=== PATIENT | female | born 1975 | race Caucasian/White ===

== ENCOUNTER 2017-06-02 08:32 | Observation (INO) | payer MEDICAID, OTHER ==
[~2017-06-02] VITALS: Ht 152.4 cm; Wt 138.0 kg
[2017-06-02 08:48] VITALS: BP 121/88; PULSE 88; RESP 18; TEMP 98.7; O2SAT 99
[2017-06-02] MEDS ORDERED: ORPHENADRINE INJ 60 MG/2 ML AMP IM ONE (10:30)
[2017-06-02] MEDS ORDERED: KETOROLAC TROMETHAMINE 60 MG/2 ML (IM) VIAL IM ONE (10:30)
--- NOTE | 2017-06-02 11:52 | RADRPT ---
EXAM DATE/TIME: 06/02/2017 10:54 [facility] COMPARISON: No previous studies available for comparison. INDICATIONS : Fell landed on back RADIATION DOSE: 37.49 CTDIvol (mGy) ; Combined studies - Thoracic Spine/Lumbar Spine MEDICAL HISTORY : None SURGICAL HISTORY : None. ENCOUNTER: Initial ACUITY: 1 day PAIN SCALE: 10/10 LOCATION: T spine TECHNIQUE: Volumetric scanning of the thoracic spine was performed. Multiplanar reconstructions in the sagittal , coronal and oblique axial planes were performed. Using automated exposure control and adjustment o f the mA and/or kV according to patient size, radiation dose was kept as low as reasonably achievable to obtain optimal diagnostic quality images. DICOM format image data is available electronically f or review and comparison. FINDINGS: Sagittal and coronal reconstructions show a compression fracture through T11 which appears acute or s ubacute. 4 mm retropulsed fragment off the superior endplate but there is no spinal stenosis. Spinal canal is adequate all remaining levels. Mild multilevel degenerative disc disease with some marginal spurring most prominent in the mid and lower dorsal levels. T1-T2: Normal. T2-T3: The thecal sac has a normal diameter. No evidence of disc bulge or protrusion. T3-T4: The thecal sac has a normal diameter. No evidence of disc bulge or protrusion. T4-T5: The thecal sac has a normal diameter. No evidence of disc bulge or protrusion. T5-T6: The thecal sac has a normal diameter. No evidence of disc bulge or protrusion. T6-T7: The thecal sac has a normal diameter. No evidence of disc bulge or protrusion. T7-T8: The thecal sac has a normal diameter. No evidence of disc bulge or protrusion. T8-T9: The thecal sac has a normal diameter. No evidence of disc bulge or protrusion. T9-T10: The thecal sac has a normal diameter. No evidence of disc bulge or protrusion. T10-T11: Fracture of the T11 vertebral body with small retropulsed fragment. Spinal canal remains adequate. T11-T12: The thecal sac has a normal diameter. No evidence of disc bulge or protrusion. T12-L1: The thecal sac has a normal diameter. No evidence of disc bulge or protrusion. CONCLUSION: 1. Acute or subacute compression fracture through T11 with a small associated 4 mm retropulsed fragme nt off the superior endplate. No obvious spinal stenosis. 2. Multilevel mild degenerative disc disease in the mid and lower dorsal levels with small marginal s purs. Spinal canal again appears adequate throughout. Bolivar Collier MD on June 02, 2017 at 11:45 Board Certified Radiologist. This report was verified electronically.
--- NOTE | 2017-06-02 11:57 | RADRPT ---
EXAM DATE/TIME: 06/02/2017 10:54 [facility] COMPARISON: No previous studies available for comparison. INDICATIONS : Fell flat on back. RADIATION DOSE: 37.49 CTDIvol (mGy) ; Combined studies - Thoracic Spine/Lumbar Spine MEDICAL HISTORY : None SURGICAL HISTORY : None. ENCOUNTER: Initial ACUITY: 1 day PAIN SCALE: 10/10 LOCATION: L spine TECHNIQUE: Volumetric scanning of the lumbar spine was performed. Multiplanar reconstructions in the sagittal, coronal and oblique axial planes were performed. Using automated exposure control and adjustment of the mA and/or kV according to patient size, radiation dose was kept as low as reasonably achievable t o obtain optimal diagnostic quality images. DICOM format image data is available electronically for review and comparison. FINDINGS: Sagittal and coronal reconstruction show an intact lumbar spine but there is a compression fracture t hrough T11 which is acute or subacute. Associated 4 mm retropulsed fragment off the superior endplate of T11 which encroaches on the spinal canal but does not appear to result in significant spinal sten osis. Vertebral body heights are maintained throughout the lumbar spine with a partially calcified br oad-based disc at the lumbosacral junction. T12-L1: The thecal sac has a normal diameter. No evidence of disc bulge or protrusion. The neural foramina are patent bilaterally. L1-L2: The thecal sac has a normal diameter. No evidence of disc bulge or protrusion. The neural foramina are patent bilaterally. L2-L3: The thecal sac has a normal diameter. No evidence of disc bulge or protrusion. The neural foramina are patent bilaterally. L3-L4: The thecal sac has a normal diameter. No evidence of disc bulge or protrusion. The neural foramina are patent bilaterally. L4-L5: Marked facet hypertrophy rightward. Spinal canal and neural foramina appear to be adequate. L5-S1: Bilateral facet hypertrophy, right much worse than left. Spinal canal and neural foramina appear to b e adequate despite the partially calcified disc at this level. CONCLUSION: 1. Acute or subacute compression fracture through T11 with a 4 mm retropulsed fragment. 2. Lumbar vertebrae are intact throughout with no acute injury. 3. Partially calcified disc at L5-S1. 4. Marked facet hypertrophy rightward L4-5 and L5-S1. I believe the neural foramina remain adequate a t both levels, however. Bolivar Collier MD on June 02, 2017 at 11:49 Board Certified Radiologist. This report was verified electronically.
--- NOTE | 2017-06-02 13:13 | PD ---
HPI . Back pain Chief Complaint: Back/ Neck Pain or Injury Time Seen by Provider: 10:09 Travel History International Travel<30 days: No Contact w/Intl Traveler<30days: No Traveled to known affect area: No History of Present Illness HPI 42-year-old female presents emergency department for evaluation of mid and lower level back pain after slipping on water and falling this morning. Patient denies any major medical history outside of hypothyroidism. Patient is morbidly obese. Patient denies any paresthesias. Bilateral lower extremities neurovascularly intact. PFSH Past Medical History ?: Not Social History Alcohol Use: No Tobacco Use: No Substance Use: No Allergies-Medications (Allergen,Severity, Reaction): Coded Allergies: No Known Allergies (Unverified , 06/02/17) Reported Meds & Prescriptions Reported Meds & Active Scripts Active No Active Prescriptions or Reported Medications Review of Systems Except as stated in HPI: all other systems reviewed are Neg Physical Exam Narrative GENERAL: Well-nourished, well-developed morbidly obese 42-year-old female patient in no acute distress. SKIN: Focused skin assessment warm/dry. HEAD: Normocephalic. Atraumatic.. NECK: Supple, trachea midline. No JVD or lymphadenopathy. CARDIOVASCULAR: Regular rate and rhythm without murmurs, gallops, or rubs. Pedal pulses +2 bilaterally. RESPIRATORY: Breath sounds equal bilaterally. No accessory muscle use. GASTROINTESTINAL: Abdomen soft, non-tender, nondistended. MUSCULOSKELETAL: No obvious deformity, cyanosis, or edema. Patient able to move all extremities without difficulty. Limited range of motion secondary to size of patient. BACK: Midline thoracic and lumbar vital tenderness. No obvious deformity, ecchymosis or erythema. No CVA tenderness. Data Data Last Documented VS Vital Signs Date Time Temp Pulse Resp B/P (MAP) Pulse Ox O2 Delivery O2 Flow Rate FiO2 06/02/17 08:48 98.7 88 18 121/88 (99) [address] Thor Spine W/O Contrast (06/02/17 10:23) Ct Lumb Spine W/O Contrast (06/02/17 10:23) Ketorolac Inj (Toradol Inj) (06/02/17 10:30) Orphenadrine Inj (Norflex Inj) (06/02/17 10:30) MDM Medical Decision Making Medical Screen Exam Complete: Yes Emergency Medical Condition: Yes Differential Diagnosis Differential diagnoses include but not limited to contusion, compression fracture, back sprain, cauda equina syndrome Narrative Course 42-year-old female patient presents emergency department for evaluation of back pain after slipping and falling of water this morning. Patient is morbidly obese and has a difficult time moving secondary to her size. Patient denies any paresthesias. Patient has midline spinal tenderness over the thoracic and lumbar region. Patient denies any major medical history outside of hypothyroidism. CT of lumbar and thoracic spine ordered and pending. CT shows compression fracture through T 11 with a small retropulsed fragment. Dr. Otto called regarding plan of care and he suggested admitting the patient to the hospital and consultation him for possible kyphoplasty. Patient will be admitted to the hospital. MAURA paged for admission. Dr. Rahman returned page and accepted admission. Last Impressions Thoracic Spine CT 06/02/17 1023 Signed Impressions: Service Date/Time: Friday, June 02, 2017 10:54 - CONCLUSION: 1. Acute or subacute compression fracture through T11 with a small associated 4 mm retropulsed fragment off the superior endplate. No obvious spinal stenosis. 2. Multilevel mild degenerative disc disease in the mid and lower dorsal levels with small marginal spurs. Spinal canal again appears adequate throughout. Bolivar Collier MD Lumbar Spine CT 06/02/17 1023 Signed Impressions: Service Date/Time: Friday, June 02, 2017 10:54 - CONCLUSION: 1. Acute or subacute compression fracture through T11 with a 4 mm retropulsed fragment. 2. Lumbar vertebrae are intact throughout with no acute injury. 3. Partially calcified disc at L5-S1. 4. Marked facet hypertrophy rightward L4-5 and L5-S1. I believe the neural foramina remain adequate at both levels, however. Bolivar Collier MD Diagnosis Primary Impression: Compression fracture of body of thoracic vertebra Additional Impression: Fall Qualified Codes: W19.XXXA - Unspecified fall, initial encounter Scripts No Active Prescriptions or Reported Meds Adriana Kim Jun 02, 2017 13:13
[2017-06-02] MEDS ORDERED: NALOXONE HCL 0.4 MG/ML AMP IV PUSH PRN (13:30)
[2017-06-02] MEDS ORDERED: SODIUM CHLORIDE 0.9% FLUSH 10 ML FLUSH IV FLUSH PRN (13:30)
[2017-06-02] MEDS ORDERED: ONDANSETRON HCL 4 MG/2 ML VIAL IVP PRN (13:30)
[2017-06-02] MEDS ORDERED: SENNOSIDES 8.6 MG TAB PO PRN (13:30)
[2017-06-02] MEDS ORDERED: oxyCODONE/ACETAMINOPHEN 5 MG/325 MG TAB PO PRN (13:30)
[2017-06-02] MEDS ORDERED: LACTULOSE SYRUP 20 GM/30 ML CUP PO PRN (13:30)
[2017-06-02] MEDS ORDERED: BISACODYL 10 MG SUPP RECTAL PRN (13:30)
[2017-06-02] MEDS ORDERED: MAGNESIUM HYDROXIDE SUSP 30 ML CUP PO PRN (13:30)
[2017-06-02] MEDS: oxyCODONE/ACETAMINOPHEN 5 MG/325 MG TAB PO PRN (15:38)
--- NOTE | 2017-06-02 15:38 | HHI.HP ---
[facility] Service [facility] Primary Care Physician No Primary Care Physician Admission Diagnosis compression T11 fracture Diagnoses: Chief Complaint: Mid back pain after fall Travel History International Travel<30 Days: No Contact w/Intl Traveler <30 Da: No Traveled to Known Affected Are: No History of Present Illness 42-year-old female with past history of hypothyroidism who presented with mid back pain after fall. Patient stated that she slide on a puddle of water on concrete and fell and landed on her butt. After the incident she says she has severe mid back pain. She then went to the emergency department. She denied any radiation of the pain or any lower extremity weakness. Deny any fecal or urinary incontinence. All other review of system reviewed and negative. Past Family Social History Past Medical History Hypothyroidism Past Surgical History Reported Medications Levothyroxin Allergies: Coded Allergies: No Known Allergies (Unverified , 06/02/17) Active Ordered Medications Current Medications Ketorolac Tromethamine (Toradol Inj) 60 mg ONCE ONCE IM Last administered on 06/02/17 10:37; Start 06/02/17 at 10:30; Stop 06/02/17 at 10:31; Status DC Orphenadrine Citrate (Norflex Inj) 60 mg ONCE ONCE IM Last administered on 10:37; Start 06/02/17 at 10:30; Stop 06/02/17 at 10:31; Status DC Sodium Chloride 1,000 ml @ 100 mls/hr Q10H IV ; Start 06/02/17 at 13:16 Sodium Chloride (NS Flush) 2 ml UNSCH PRN IV FLUSH FLUSH AFTER USING IV ACCESS ; Start 06/02/17 at 13:30 Sodium Chloride (NS Flush) 2 ml BID IV FLUSH ; Start 06/02/17 at 21:00 Ondansetron HCl (Zofran Inj) 4 mg Q6H PRN IVP NAUSEA OR VOMITING; Start at 13:30 Naloxone HCl (Narcan Inj) 0.4 mg UNSCH PRN IV PUSH SEE LABEL COMMENTS; Start 06/02/17 at 13:30 Senna/Docusate Sodium (Renee-Colace) 1 tab BID PO ; Start 06/02/17 at 21:00 Magnesium Hydroxide (Milk Of Magnesia Liq) 30 ml Q12H PRN PO Mild constipation ; Start 06/02/17 at 13:30 Sennosides (Senokot) 17.2 mg Q12H PRN PO Moderate constipation; Start 06/02/17 at 13:30 Bisacodyl (Dulcolax Supp) 10 mg DAILY PRN RECTAL SEVERE CONSITIPATION; Start 06/02/17 at 13:30 Lactulose (Lactulose Liq) 30 ml DAILY PRN PO SEVERE CONSITIPATION; Start at 13:30 Oxycodone/ Acetaminophen (Percocet 5-325 Mg) 1 tab Q4H PRN PO pain 3-8; Start 06/02/17 at 13:30 Oxycodone/ Acetaminophen (Percocet 5-325 Mg) 2 tab Q4H PRN PO 9-10 Last administered on 06/02/17t 15:38; Start 06/02/17 at 13:30 Pneumococcal Polyvalent Vaccine (Pneumovax-23 Inj) 25 mcg ONCE ONCE IM ; Start 06/03/17 at 10:00; Stop 06/03/17 at 10:01 Influenza Virus Vaccine (Flu (Quadrivalent) Vaccine Inj) 0.5 ml ONCE ONCE IM ; Start 06/03/17 at 10:00; Stop 06/03/17 at 10:01 Family History Patient stated that her biological father side has extensive heart disease. She stated that she does not know her biological father well. Otherwise all family members are healthy. Social History Denies any tobacco or illicit drug use. Rarely drinks alcohol only on special occasions like holidays. Physical Exam Vital Signs Vital Signs Date Time Temp Pulse Resp B/P (MAP) Pulse Ox O2 Delivery O2 Flow Rate FiO2 06/02/17 08:48 98.7 88 18 121/88 (99) 99 Physical Exam GENERAL: This is a well-nourished, well-developed patient, in no apparent distress. SKIN: No rashes, ecchymoses or lesions. Cool and dry. HEAD: Atraumatic. Normocephalic. No temporal or scalp tenderness. EYES: Pupils equal round and reactive. Extraocular motions intact. No scleral icterus. No injection or drainage. ENT: Nose without bleeding, purulent drainage or septal hematoma. Throat without erythema, tonsillar hypertrophy or exudate. Uvula midline. Airway patent. NECK: Trachea midline. No JVD or lymphadenopathy. Supple, nontender, no meningeal signs. CARDIOVASCULAR: Regular rate and rhythm without murmurs, gallops, or rubs. RESPIRATORY: Clear to auscultation. Breath sounds equal bilaterally. No wheezes , rales, or rhonchi. GASTROINTESTINAL: Abdomen soft, non-tender, nondistended. No hepato-splenomegaly , or palpable masses. No guarding. MUSCULOSKELETAL: Extremities without clubbing, cyanosis, or edema. Positive tenderness to palpation in the mid back.. No calf tenderness. Negative Homans sign bilaterally. NEUROLOGICAL: Awake and alert. Cranial nerves II through XII intact. Motor and sensory grossly within normal limits. Five out of 5 muscle strength in all muscle groups. Normal speech. Imaging Last Impressions Thoracic Spine CT 06/02/17 1023 Signed Impressions: Service Date/Time: Friday, June 02, 2017 10:54 - CONCLUSION: 1. Acute or subacute compression fracture through T11 with a small associated 4 mm retropulsed fragment off the superior endplate. No obvious spinal stenosis. 2. Multilevel mild degenerative disc disease in the mid and lower dorsal levels with small marginal spurs. Spinal canal again appears adequate throughout. Bolivar Collier MD Lumbar Spine CT 06/02/17 1023 Signed Impressions: Service Date/Time: Friday, June 02, 2017 10:54 - CONCLUSION: 1. Acute or subacute compression fracture through T11 with a 4 mm retropulsed fragment. 2. Lumbar vertebrae are intact throughout with no acute injury. 3. Partially calcified disc at L5-S1. 4. Marked facet hypertrophy rightward L4-5 and L5-S1. I believe the neural foramina remain adequate at both levels, however. Bolivar Collier MD Caprini VTE Risk Assessment Caprini VTE Risk Assessment: No/Low Risk (score <= 1) Caprini Risk Assessment Model Point Value = 1 Point Value = 2 Point Value = 3 Point Value = 5 Age 41-60 Minor surgery BMI > 25 kg/m2 Swollen legs Varicose veins or History of unexplained or recurrent spontaneous Oral contraceptives or hormone replacement Sepsis (< 1 month) Serious lung disease, including pneumonia (< 1 month) Abnormal pulmonary function Acute myocardial infarction Congestive heart failure (< 1 month) History of inflammatory bowel disease Medical patient at bed rest Age 61-74 Arthroscopic surgery Major open surgery (> 45 min) Laparoscopic surgery (> 45 min) Malignancy Confined to bed (> 72 hours) Immobilizing plaster cast Central venous access Age >= 75 History of VTE Family history of VTE Factor V Leiden Prothrombin [id number] Lupus anticoagulant Anticardiolipin antibodies Elevated serum homocysteine Heparin-induced thrombocytopenia Other congenital or acquired thrombophilia Stroke (< 1 month) Elective arthroplasty Hip, pelvis, or leg fracture Acute spinal cord injury (< 1 month) Prophylaxis Regimen Total Risk Factor Score Risk Level Prophylaxis Regimen 0-1 Low Early ambulation 2 Moderate Order ONE of the following: *Sequential Compression Device (SCD) *Heparin 5000 units SQ BID 3-4 Higher Order ONE of the following medications: *Heparin 5000 units SQ TID *Enoxaparin/Lovenox 40 mg SQ daily (WT < 150 kg, CrCl > 30 mL/min) *Enoxaparin/Lovenox 30 mg SQ daily (WT < 150 kg, CrCl > 10-29 mL/min) *Enoxaparin/Lovenox 30 mg SQ BID (WT < 150 kg, CrCl > 30 mL/min) AND/OR *Sequential Compression Device (SCD) 5 or more Highest Order ONE of the following medications: *Heparin 5000 units SQ TID (Preferred with Epidurals) *Enoxaparin/Lovenox 40 mg SQ daily (WT < 150 kg, CrCl > 30 mL/min) *Enoxaparin/Lovenox 30 mg SQ daily (WT < 150 kg, CrCl > 10-29 mL/min) *Enoxaparin/Lovenox 30 mg SQ BID (WT < 150 kg, CrCl > 30 mL/min) AND *Sequential Compression Device (SCD) Assessment and Plan Assessment and Plan This is a 42-year-old female with past mental history of hypothyroidism who presented with a fall Mechanical fall -Due to water being on the floor. Mid back pain -Due to trauma from mechanical fall. -CT scan showed acute/subacute compression fracture of T11 with 4 mm retropulsed fragment. -Neurosurgeon consulted by ED. Recommend to place consult for possible kyphoplasty. Also recommend MRI. -Will try Percocet for pain control. -Will also get blood work and if kidney functions normal will start Toradol. Hypothyroidism -Will restart medication once med list is updated by nurse. DVT prophylaxis -SCDs. Discussed Condition With patient Trang Zuniga MD Jun 02, 2017 15:38
--- NOTE | 2017-06-02 16:02 | PD.CONS ---
[facility] Service neurosugery Consult Requested By DR Zuniga Reason for Consult T11 fracture Primary Care Physician No Primary Care Physician History of Present Illness 42-year-old female with past history of hypothyroidism who presented with mid back pain after fall.No head injury. No LOC. No seizure activity. No tongue bitting. Patient stated that she slide on a puddle of water on concrete and fell and landed on her butt. After the incident she says she has severe mid back pain. She then went to the emergency department. She denied any radiation of the pain or any lower extremity weakness. Deny any fecal or urinary incontinence.. She reports severe back pain. no radiculopathy. No focal weakness. No sensory loss. No incontinence of stool or urine. CT showed a T11 fracture. Neurosurgical consultation was requested Review of Systems Constitutional: DENIES: Diaphoretic episodes, Fatigue, Fever, Weight gain, Weight loss, Chills, Dizziness, Change in appetite, Night Sweats Eyes: DENIES: Blurred vision, Diplopia, Eye inflammation, Eye pain, Vision loss , Photosensitivity, Double Vision Ears, nose, mouth, throat: DENIES: Tinnitus, Hearing loss, Vertigo, Nasal discharge, Oral lesions, Throat pain, Hoarseness, Ear Pain, Running Nose, Epistaxis, Sinus Pain, Toothache, Odynophagia Respiratory: DENIES: Apneas, Cough, Snoring, Wheezing, Hemoptysis, Sputum production, Shortness of breath Cardiovascular: DENIES: Chest pain, Palpitations, Syncope, Dyspnea on Exertion , PND, Lower Extremity Edema, Orthopnea, Claudication Gastrointestinal: DENIES: Abdominal pain, Black stools, Bloody stools, Constipation, Diarrhea, Nausea, Vomiting, Difficulty Swallowing, Anorexia Genitourinary: DENIES: Abnormal vaginal bleeding, Dysmenorrhea, Dyspareunia, Sexual dysfunction, Urinary frequency, Urinary incontinence, Urgency, Hematuria , Dysuria, Nocturia, Vaginal discharge Musculoskeletal: COMPLAINS OF: Back pain, DENIES: Joint pain, Muscle aches, Stiffness, Joint Swelling, Neck pain Integumentary: DENIES: Abnormal pigmentation, Pruritus, Rash, Nail changes, Breast masses, Breast skin changes, Nipple discharge Hematologic/lymphatic: DENIES: Bruising, Lymphadenopathy Immunologic/allergic: DENIES: Eczema, Urticaria Neurologic: DENIES: Abnormal gait, Headache, Localized weakness, Paresthesias, Seizures, Speech Problems, Tremor, Poor Balance Psychiatric: DENIES: Anxiety, Confusion, Mood changes, Depression, Hallucinations, Agitation, Suicidal Ideation, Homicidal Ideation, Delusions Past Family Social History Allergies: Coded Allergies: No Known Allergies (Unverified , 06/02/17) Past Medical History Hypothyroidism Past Surgical History Reported Medications Levothyroxin Active Ordered Medications Ketorolac Tromethamine (Toradol Inj) 60 mg ONCE ONCE IM Last administered on 06/02/17 10:37; Start 06/02/17 at 10:30; Stop 06/02/17 at 10:31; Status DC Orphenadrine Citrate (Norflex Inj) 60 mg ONCE ONCE IM Last administered on 10:37; Start 06/02/17 at 10:30; Stop 06/02/17 at 10:31; Status DC Sodium Chloride 1,000 ml @ 100 mls/hr Q10H IV ; Start 06/02/17 at 13:16 Sodium Chloride (NS Flush) 2 ml UNSCH PRN IV FLUSH FLUSH AFTER USING IV ACCESS ; Start 06/02/17 at 13:30 Sodium Chloride (NS Flush) 2 ml BID IV FLUSH ; Start 06/02/17 at 21:00 Ondansetron HCl (Zofran Inj) 4 mg Q6H PRN IVP NAUSEA OR VOMITING; Start at 13:30 Naloxone HCl (Narcan Inj) 0.4 mg UNSCH PRN IV PUSH SEE LABEL COMMENTS; Start 06/02/17 at 13:30 Senna/Docusate Sodium (Renee-Colace) 1 tab BID PO ; Start 06/02/17 at 21:00 Magnesium Hydroxide (Milk Of Magnesia Liq) 30 ml Q12H PRN PO Mild constipation ; Start 06/02/17 at 13:30 Sennosides (Senokot) 17.2 mg Q12H PRN PO Moderate constipation; Start 06/02/17 at 13:30 Bisacodyl (Dulcolax Supp) 10 mg DAILY PRN RECTAL SEVERE CONSITIPATION; Start 06/02/17 at 13:30 Lactulose (Lactulose Liq) 30 ml DAILY PRN PO SEVERE CONSITIPATION; Start at 13:30 Oxycodone/ Acetaminophen (Percocet 5-325 Mg) 1 tab Q4H PRN PO pain 3-8; Start 06/02/17 at 13:30 Oxycodone/ Acetaminophen (Percocet 5-325 Mg) 2 tab Q4H PRN PO 9-10 Last administered on 06/02/17t 15:38; Start 06/02/17 at 13:30 Pneumococcal Polyvalent Vaccine (Pneumovax-23 Inj) 25 mcg ONCE ONCE IM ; Start 06/03/17 at 10:00; Stop 06/03/17 at 10:01 Influenza Virus Vaccine (Flu (Quadrivalent) Vaccine Inj) 0.5 ml ONCE ONCE IM ; Start 06/03/17 at 10:00; Stop 06/03/17 at 10:01 Family History Denies any tobacco or illicit drug use. Rarely drinks alcohol only on special occasions like holidays. Social History Denies any tobacco or illicit drug use. Rarely drinks alcohol only on special occasions like holidays. Physical Exam Vital Signs Vital Signs Date Time Temp Pulse Resp B/P (MAP) Pulse Ox O2 Delivery O2 Flow Rate FiO2 06/02/17 08:48 98.7 88 18 121/88 (99) 99 Physical Exam MS Browns alert, awake and oriented to time, place and person. Speech is fluent. Higher cognitive functions are normal. Cranial nerve examination demonstrates the pupils to be equal, round, and reactive to light. Extra-ocular movements are intact. Facial motor and sensory function are normal and symmetrical. Gross hearing is intact, bilaterally. The uvula is midline and elevates symmetrically with the soft palate. Sternocleidomastoid and trapezius muscles have normal and symmetrical strength. Other cranial nerves are intact. Neck is soft and supple. Cervical spine has a full range of motion in anterior flexion, extension, lateral bending, and rotation without pain. There is no tenderness to palpation to the spinous processes or paraspinal muscles. Muscle testing reveals normal bulk and tone overall without rigidity, spasticity , fasciculations, or atrophy. Muscle strength is 5/5 in all muscle groups of both upper extremities including deltoid, biceps, triceps, brachioradialis, wrist extension and account development manager. In the lower extremities, strength is 5/5 in both iliopsoas, quadriceps, hamstrings, plantar flexion, dorsiflexion, and extensor hallicus longus. Sensory examination is intact to light touch and sharp/dull discrimination in both the upper and lower extremities, symmetrically. Deep tendon reflexes are 1+ and symmetrical in the biceps, triceps, and brachioradialis, bilaterally, in the upper extremities. In the lower extremities , the patellar and Achilles are 1+, bilaterally. There is a bilateral plantar flexion response. Hoffmanns sign is negative. There is no clonus or other abnormal reflexes noted. Cerebellar examination is intact to [id number] test, rapid rhythmic alternating motion. There is no dysmetria, dysdiadochokinesia, truncal ataxia, or tremor. Imaging Last 48 hours Impressions Thoracic Spine CT 06/02/17 1023 Signed Impressions: Service Date/Time: Friday, June 02, 2017 10:54 - CONCLUSION: 1. Acute or subacute compression fracture through T11 with a small associated 4 mm retropulsed fragment off the superior endplate. No obvious spinal stenosis. 2. Multilevel mild degenerative disc disease in the mid and lower dorsal levels with small marginal spurs. Spinal canal again appears adequate throughout. Bolivar Collier MD Lumbar Spine CT 06/02/17 1023 Signed Impressions: Service Date/Time: Friday, June 02, 2017 10:54 - CONCLUSION: 1. Acute or subacute compression fracture through T11 with a 4 mm retropulsed fragment. 2. Lumbar vertebrae are intact throughout with no acute injury. 3. Partially calcified disc at L5-S1. 4. Marked facet hypertrophy rightward L4-5 and L5-S1. I believe the neural foramina remain adequate at both levels, however. Bolivar Collier MD Assessment and Plan Assessment and Plan Caprini VTE Risk Assessment Caprini VTE Risk Assessment Caprini VTE Risk Assessment: No/Low Risk (score <= 1) Caprini Risk Assessment Model Point Value = 1 Point Value = 2 Point Value = 3 Point Value = 5 Age 41-60 Minor surgery BMI > 25 kg/m2 Swollen legs Varicose veins or History of unexplained or recurrent spontaneous Oral contraceptives or hormone replacement Sepsis (< 1 month) Serious lung disease, including pneumonia (< 1 month) Abnormal pulmonary function Acute myocardial infarction Congestive heart failure (< 1 month) History of inflammatory bowel disease Medical patient at bed rest Age 61-74 Arthroscopic surgery Major open surgery (> 45 min) Laparoscopic surgery (> 45 min) Malignancy Confined to bed (> 72 hours) Immobilizing plaster cast Central venous access Age >= 75 History of VTE Family history of VTE Factor V Leiden Prothrombin [id number] Lupus anticoagulant Anticardiolipin antibodies Elevated serum homocysteine Heparin-induced thrombocytopenia Other congenital or acquired thrombophilia Stroke (< 1 month) Elective arthroplasty Hip, pelvis, or leg fracture Acute spinal cord injury (< 1 month) Prophylaxis Regimen Total Risk Factor Score Risk Level Prophylaxis Regimen 0-1 Low Early ambulation 2 Moderate Order ONE of the following: *Sequential Compression Device (SCD) *Heparin 5000 units SQ BID 3-4 Higher Order ONE of the following medications: *Heparin 5000 units SQ TID *Enoxaparin/Lovenox 40 mg SQ daily (WT < 150 kg, CrCl > 30 mL/min) *Enoxaparin/Lovenox 30 mg SQ daily (WT < 150 kg, CrCl > 10-29 mL/min) *Enoxaparin/Lovenox 30 mg SQ BID (WT < 150 kg, CrCl > 30 mL/min) AND/OR *Sequential Compression Device (SCD) 5 or more Highest Order ONE of the following medications: *Heparin 5000 units SQ TID (Preferred with Epidurals) *Enoxaparin/Lovenox 40 mg SQ daily (WT < 150 kg, CrCl > 30 mL/min) *Enoxaparin/Lovenox 30 mg SQ daily (WT < 150 kg, CrCl > 10-29 mL/min) *Enoxaparin/Lovenox 30 mg SQ BID (WT < 150 kg, CrCl > 30 mL/min) AND *Sequential Compression Device (SCD) Attending Statement I reviewed her clinical and radiological fndings. I recommend an MRI thoracic spine. I discussed with her the alternatives of treatment. She is not a candidate for surgery,. Will defer recommendations to upon completion of MRI Pain control with narcotics Pulmonary.aggressive pulmonary toilette, nasotracheal suction, and breathing treatments with nebulizers. Nutrition. Continue Oral diet Renal. monitor closely urine output, BUN and creatinine Endocrine. Monitor serial Acu checks and SSI as needed in detail ID monitor for signs of infection Continue Protonix for stress ulcer prophylaxis Continue Leonides hose and SCD's for DVT prophylaxis. Discussed with Jareth Loev MD Jun 02, 2017 16:02
[2017-06-02 16:13] VITALS: BP 106/58; PULSE 78; RESP 20; TEMP 98.1; O2SAT 93
[2017-06-02] MEDS: SODIUM CHLOR 0.9% 1000 ML INJ 1,000 ML IV SCH ×2 (19:26→23:16)
--- NOTE | 2017-06-02 20:10 | HHI.PR ---
Subjective Remarks not seen Objective Vitals Vital Signs Date Time Temp Pulse Resp B/P (MAP) Pulse Ox O2 Delivery O2 Flow Rate FiO2 06/02/17 16:13 98.1 78 20 106/58 (74) 93 06/02/17 08:48 98.7 88 18 121/88 (99) 99 I/O 06/01/17 06/01/17 06/01/17 06/02/17 06/02/17 06/02/17 07:00 15:00 23:00 07:00 15:00 23:00 Intake Total 480 ml Balance 480 ml Intake Oral 480 ml # Voids 4 Imaging Last Impressions Thoracic Spine CT 06/02/17 1023 Signed Impressions: Service Date/Time: Friday, June 02, 2017 10:54 - CONCLUSION: 1. Acute or subacute compression fracture through T11 with a small associated 4 mm retropulsed fragment off the superior endplate. No obvious spinal stenosis. 2. Multilevel mild degenerative disc disease in the mid and lower dorsal levels with small marginal spurs. Spinal canal again appears adequate throughout. Bolivar Collier MD Lumbar Spine CT 06/02/17 1023 Signed Impressions: Service Date/Time: Friday, June 02, 2017 10:54 - CONCLUSION: 1. Acute or subacute compression fracture through T11 with a 4 mm retropulsed fragment. 2. Lumbar vertebrae are intact throughout with no acute injury. 3. Partially calcified disc at L5-S1. 4. Marked facet hypertrophy rightward L4-5 and L5-S1. I believe the neural foramina remain adequate at both levels, however. Bolivar Collier MD Objective Remarks GENERAL: This is a well-nourished, well-developed patient, in no apparent distress. SKIN: No rashes, ecchymoses or lesions. Cool and dry. HEAD: Atraumatic. Normocephalic. No temporal or scalp tenderness. EYES: Pupils equal round and reactive. Extraocular motions intact. No scleral icterus. No injection or drainage. ENT: Nose without bleeding, purulent drainage or septal hematoma. Throat without erythema, tonsillar hypertrophy or exudate. Uvula midline. Airway patent. NECK: Trachea midline. No JVD or lymphadenopathy. Supple, nontender, no meningeal signs. CARDIOVASCULAR: Regular rate and rhythm without murmurs, gallops, or rubs. RESPIRATORY: Clear to auscultation. Breath sounds equal bilaterally. No wheezes , rales, or rhonchi. GASTROINTESTINAL: Abdomen soft, non-tender, nondistended. No hepato-splenomegaly , or palpable masses. No guarding. MUSCULOSKELETAL: Extremities without clubbing, cyanosis, or edema. Positive tenderness to palpation in the mid back.. No calf tenderness. Negative Homans sign bilaterally. NEUROLOGICAL: Awake and alert. Cranial nerves II through XII intact. Motor and sensory grossly within normal limits. Five out of 5 muscle strength in all muscle groups. Normal speech. A/P Problem List: (1) Compression fracture of body of thoracic vertebra ICD Code: M48.54XA - Collapsed vertebra, not elsewhere classified, thoracic region, initial encounter for fracture Status: Acute (2) Fall ICD Code: W19.XXXA - Unspecified fall, initial encounter Status: Acute Assessment and Plan This is a 42-year-old female with past mental history of hypothyroidism who presented with a fall Mechanical fall -Due to water being on the floor. Mid back pain -Due to trauma from mechanical fall. -CT scan showed acute/subacute compression fracture of T11 with 4 mm retropulsed fragment. -Neurosurgeon consulted by ED. Recommend to place consult for possible kyphoplasty. Also recommend MRI. -Will try Percocet for pain control. -Will also get blood work and if kidney functions normal will start Toradol. Hypothyroidism -Will restart medication once med list is updated by nurse. DVT prophylaxis -SCDs. Problem Qualifiers (1) Fall: Qualified Codes: W19.XXXA - Unspecified fall, initial encounter Neto Smith MD Jun 02, 2017 20:10
[2017-06-02 20:44] VITALS: BP 113/59; PULSE 72; RESP 18; TEMP 98.7; O2SAT 94
[2017-06-02] MEDS: SODIUM CHLORIDE 0.9% FLUSH 10 ML FLUSH IV FLUSH SCH (21:00)
[2017-06-02] MEDS: DOCUSATE SODIUM 50 MG/SENNA 8.6 MG TAB PO SCH (21:09)
[2017-06-02] MEDS: MORPHINE SULFATE 2 MG/ML INJ IM PRN (21:10)
[2017-06-02 22:23] LABS: APTT (PATIENT) 30.4 SEC (24.3-30.1); PROTHROMBIN TIME - PATIENT 11.4 SEC (9.8-11.6)
[2017-06-02 22:24] LABS: HEMATOCRIT 39.2 % (35.0-46.0); MEAN CELL VOLUME 92.7 FL (80.0-100.0); MEAN CORPUSCULAR HEMOGLOBIN 30.8 PG (27.0-34.0); MEAN CORPUSCULAR HGB CONC 33.2 % (32.0-36.0); PLATELET COUNT 247 TH/MM3 (150-450); RED BLOOD COUNT 4.23 MIL/MM3 (4.00-5.30); RED CELL DISTRIBUTION WIDTH 14.2 % (11.6-17.2); WHITE BLOOD COUNT 11.6 TH/MM3 (4.0-11.0)
[2017-06-02 22:38] LABS: BICARBONATE 26.7 MEQ/L (21.0-32.0); POTASSIUM 3.8 MEQ/L (3.5-5.1)
[2017-06-02 22:51] LABS: REVIEW FLAG FINAL
[2017-06-03 00:01] VITALS: BP 105/53; PULSE 69; RESP 18; TEMP 98.4; O2SAT 96
[2017-06-03] MEDS: oxyCODONE/ACETAMINOPHEN 5 MG/325 MG TAB PO PRN ×4 (00:19→21:37)
[2017-06-03] MEDS: MORPHINE SULFATE 2 MG/ML INJ IM PRN ×2 (03:03→07:58)
[2017-06-03 05:05] VITALS: BP 115/50; PULSE 62; RESP 18; TEMP 98.5; O2SAT 97
[2017-06-03] MEDS: SODIUM CHLOR 0.9% 1000 ML INJ 1,000 ML IV SCH (05:12)
[2017-06-03 07:06] LABS: BACTERIA, URINE MOD /hpf; BLOOD, URINE NEG (NEG); COMMENT (UR) CULTURE INDICATED; CULTURE IF INDICATED CULTURE INDICATED; GLUCOSE,URINE NEG (NEG); KETONE, URINE NEG (NEG); MUCUS URINE FEW /lpf (OCC); NITRITE,URINE NEG (NEG); PH, URINE 5.5 (5.0-8.5); SQUAMOUS EPITHELIAL CELL URINE 7 /hpf (0-5); URINE COLOR YELLOW (YELLW/STRAW)
[2017-06-03 08:30] VITALS: BP_SYST 90; BP_SYST 97; BP_DIAS 47; BP_DIAS 53; PULSE 59; RESP 21; TEMP 97.7; O2SAT 93
[2017-06-03] MEDS: SODIUM CHLORIDE 0.9% FLUSH 10 ML FLUSH IV FLUSH SCH ×2 (09:00→21:36)
[2017-06-03] MEDS ORDERED: PNEUMOCOCCAL POLYVALENT INJ 25 MCG/0.5 ML SYR IM ONE (10:00)
[2017-06-03] MEDS ORDERED: INFLUENZA VIRUS VACCINE (QUADRIVALENT) 0.5 ML SYR IM ONE (10:00)
[2017-06-03 11:02] LABS: BASOPHIL % 0.3 % (0.0-2.0); EOSINOPHIL # 0.2 TH/MM3 (0-0.4); HEMATOCRIT 39.1 % (35.0-46.0); HEMO FLAGS DIFF FINAL; LYMPH % 31.4 % (9.0-44.0); MEAN CELL VOLUME 93.4 FL (80.0-100.0); MEAN CORPUSCULAR HEMOGLOBIN 31.5 PG (27.0-34.0); MEAN CORPUSCULAR HGB CONC 33.7 % (32.0-36.0); MONO % 4.3 % (0.0-8.0); PLATELET COUNT 246 TH/MM3 (150-450); RED BLOOD COUNT 4.18 MIL/MM3 (4.00-5.30); RED CELL DISTRIBUTION WIDTH 14.1 % (11.6-17.2); WHITE BLOOD COUNT 6.5 TH/MM3 (4.0-11.0)
[2017-06-03] MEDS ORDERED: CIPR250T52 PO (11:18)
--- NOTE | 2017-06-03 11:22 | HHI.DCPOC ---
Discharge Care Plan Diagnosis: (1) Urinary tract infection (2) Back pain (3) Fall (4) Compression fracture of body of thoracic vertebra Goals to Promote Your Health * To prevent worsening of your condition and complications * To maintain your health at the optimal level Directions to Meet Your Goals You must have your TLSO brace on at all times when up out of bed Please follow up with open MRI as an outpatient Take your medications as prescribed Follow your dietary instruction Follow activity as directed Keep your appointments as scheduled Take your immunizations and boosters as scheduled If your symptoms worsen call your PCP, if no PCP go to Urgent Care Center or Emergency Room Smoking is Dangerous to Your Health. Avoid second hand smoke Call the 24-hour hour crisis hotline for domestic abuse at Diane Estrada Jun 03, 2017 11:22
--- NOTE | 2017-06-03 11:25 | HHI.PR ---
Subjective Remarks Follow-up back pain. States it is episodic when she takes a deep breath. She has not been out of bed awaiting TLSO brace. Refused MRI even with meds stating she is too claustrophobic. Discussed with RN, neurosurgery has cleared patient for discharge with outpatient MRI as long as she is ambulating with TLSO Objective Vitals Vital Signs Date Time Temp Pulse Resp B/P (MAP) Pulse Ox O2 Delivery O2 Flow Rate FiO2 06/03/17 08:30 97.7 59 21 97/53 (68) 93 06/03/17 05:05 98.5 62 18 115/50 (71) 97 06/03/17 00:01 98.4 69 18 105/53 (70) 96 06/02/17 20:44 98.7 72 18 113/59 (77) 94 06/02/17 16:13 98.1 78 20 106/58 (74) 93 I/O 06/02/17 06/02/17 06/02/17 06/03/17 06/03/17 06/03/17 07:00 15:00 23:00 07:00 15:00 23:00 Intake Total 480 ml Output Total 300 ml Balance 180 ml Intake Oral 480 ml Output Urine Total 300 ml # Voids 4 Result Diagram: 06/03/17 1040 06/02/176 Imaging Last Impressions Thoracic Spine CT 06/02/17 1023 Signed Impressions: Service Date/Time: Friday, June 02, 2017 10:54 - CONCLUSION: 1. Acute or subacute compression fracture through T11 with a small associated 4 mm retropulsed fragment off the superior endplate. No obvious spinal stenosis. 2. Multilevel mild degenerative disc disease in the mid and lower dorsal levels with small marginal spurs. Spinal canal again appears adequate throughout. Bolivar Collier MD Lumbar Spine CT 06/02/17 1023 Signed Impressions: Service Date/Time: Friday, June 02, 2017 10:54 - CONCLUSION: 1. Acute or subacute compression fracture through T11 with a 4 mm retropulsed fragment. 2. Lumbar vertebrae are intact throughout with no acute injury. 3. Partially calcified disc at L5-S1. 4. Marked facet hypertrophy rightward L4-5 and L5-S1. I believe the neural foramina remain adequate at both levels, however. Bolivar Collier MD Objective Remarks GENERAL: This is an obese, well-developed patient, in no apparent distress. SKIN: No rashes, ecchymoses or lesions. Cool and dry. CARDIOVASCULAR: Regular rate and rhythm without murmurs, gallops, or rubs. RESPIRATORY: Clear to auscultation. Breath sounds equal bilaterally. No wheezes , rales, or rhonchi. GASTROINTESTINAL: Abdomen soft, non-tender, nondistended. No guarding. MUSCULOSKELETAL: Extremities without clubbing, cyanosis, or edema. Positive tenderness to palpation in the mid back. No calf tenderness. Negative Homans sign bilaterally. NEUROLOGICAL: Awake and alert. Cranial nerves II through XII intact. Motor and sensory grossly within normal limits. Five out of 5 muscle strength in all muscle groups. Normal speech. Procedures none A/P Problem List: (1) Compression fracture of body of thoracic vertebra ICD Code: M48.54XA - Collapsed vertebra, not elsewhere classified, thoracic region, initial encounter for fracture Status: Acute (2) Fall ICD Code: W19.XXXA - Unspecified fall, initial encounter Status: Acute Assessment and Plan This is a 42-year-old female with past mental history of hypothyroidism who presented with a fall Mechanical fall -Due to water being on the floor. Mid back pain -Due to trauma from mechanical fall. -CT scan showed acute/subacute compression fracture of T11 with 4 mm retropulsed fragment. -Neurosurgeon recommended nonsurgical management and cleared patient for discharge when ambulating and TLSO arranged. Also recommend MRI but patient too claustrophobic. -Will try Percocet for pain control. -PT OOB with TLSO Hypothyroidism -Continue home medication UTI possible pyelonephritis -Start Cipro patient aware risk of tendon rupture DVT prophylaxis -SCDs. Discharge Planning Discharge when cleared by PT Problem Qualifiers (1) Fall: Qualified Codes: W19.XXXA - Unspecified fall, initial encounter Neto Smith MD Jun 03, 2017 11:25
--- NOTE | 2017-06-03 11:27 | HHI.FF ---
Face to Face Verification Diagnosis: (1) Back pain (2) Fall (3) Compression fracture of body of thoracic vertebra Physical Therapy Order: Evaluate and Treat, Improve ambulation, Strength and gait training I have seen patient Lisbeth Mo on 06/03/17. My clinical findings support the need for the requested home health care services because: Ltd mobility - disease progression Deconditioned w/ increased weakness High risk of falls I certify that my clinical findings support that this patient is homebound because: Unsafe to leave home unassisted Unable to use public transportation Diane Estrada Jun 03, 2017 11:27
[2017-06-03] MEDS: DOCUSATE SODIUM 50 MG/SENNA 8.6 MG TAB PO SCH ×2 (11:45→21:36)
[2017-06-03 11:57] VITALS: BP 115/59; PULSE 61; RESP 19; TEMP 98.1; O2SAT 94
[2017-06-03 12:40] LABS: BICARBONATE 26.5 MEQ/L (21.0-32.0)
[2017-06-03] MEDS: CIPROFLOXACIN 250 MG TAB PO SCH ×2 (13:59→21:35)
[2017-06-03] MEDS: CYCLOBENZAPRINE HCL 10 MG TAB PO PRN (17:06)
[2017-06-03] MEDS ORDERED: OXYC1TAB63 PO (17:14)
[2017-06-03 19:40] VITALS: BP 130/85; PULSE 68; RESP 17; TEMP 97.8; O2SAT 96
[2017-06-03 23:40] VITALS: BP 117/54; PULSE 63; RESP 19; TEMP 97.8; O2SAT 96
[2017-06-04 03:24] VITALS: BP 127/87; PULSE 66; RESP 20; TEMP 98.1; O2SAT 94
[2017-06-04] MEDS: CYCLOBENZAPRINE HCL 10 MG TAB PO PRN (03:28)
[2017-06-04] MEDS: oxyCODONE/ACETAMINOPHEN 5 MG/325 MG TAB PO PRN ×2 (05:27→16:09)
[2017-06-04 07:28] VITALS: BP 139/87; PULSE 57; RESP 22; TEMP 98.2; O2SAT 97
[2017-06-04] MEDS ORDERED: CHOLECALCIFEROL (VIT D3) 1000 UNIT TAB PO SCH (09:00)
[2017-06-04] MEDS: SODIUM CHLORIDE 0.9% FLUSH 10 ML FLUSH IV FLUSH SCH (09:00)
[2017-06-04] MEDS ORDERED: HEPARIN SODIUM - SQ 10,000 UNITS/ML VIAL SQ SCH (10:00)
[2017-06-04] MEDS ORDERED: LEVO.075 PO (10:31)
[2017-06-04] MEDS ORDERED: LEVO.2 PO (10:31)
[2017-06-04] MEDS ORDERED: VITA1000 PO (10:31)
--- NOTE | 2017-06-04 11:19 | HHI.PR ---
Subjective Remarks Follow-up low back pain. Intermittent pain with activity. Patient has history of hypothyroidism. She is on levothyroxine 250 mcg daily. Objective Vitals Vital Signs Date Time Temp Pulse Resp B/P (MAP) Pulse Ox O2 Delivery O2 Flow Rate FiO2 06/04/17 07:28 98.2 57 22 139/87 (104) 97 06/04/17 03:24 98.1 66 20 127/87 (100) 94 06/03/17 23:40 97.8 63 19 117/54 (75) 96 06/03/17 22:37 5 06/03/17 19:40 97.8 68 17 130/85 (100) 96 06/03/17 11:57 98.1 61 19 115/59 (77) 94 Result Diagram: 06/03/17 1040 06/03/17 1040 Imaging Last Impressions Thoracic Spine CT 06/02/17 1023 Signed Impressions: Service Date/Time: Friday, June 02, 2017 10:54 - CONCLUSION: 1. Acute or subacute compression fracture through T11 with a small associated 4 mm retropulsed fragment off the superior endplate. No obvious spinal stenosis. 2. Multilevel mild degenerative disc disease in the mid and lower dorsal levels with small marginal spurs. Spinal canal again appears adequate throughout. Bolivar Collier MD Lumbar Spine CT 06/02/17 1023 Signed Impressions: Service Date/Time: Friday, June 02, 2017 10:54 - CONCLUSION: 1. Acute or subacute compression fracture through T11 with a 4 mm retropulsed fragment. 2. Lumbar vertebrae are intact throughout with no acute injury. 3. Partially calcified disc at L5-S1. 4. Marked facet hypertrophy rightward L4-5 and L5-S1. I believe the neural foramina remain adequate at both levels, however. Bolivar Collier MD Objective Remarks GENERAL: This is an obese, well-developed patient, in no apparent distress. SKIN: No rashes, ecchymoses or lesions. Cool and dry. CARDIOVASCULAR: Regular rate and rhythm without murmurs, gallops, or rubs. RESPIRATORY: Clear to auscultation. Breath sounds equal bilaterally. No wheezes , rales, or rhonchi. GASTROINTESTINAL: Abdomen soft, non-tender, nondistended. No guarding. MUSCULOSKELETAL: Extremities without clubbing, cyanosis, or edema. Positive tenderness to palpation in the mid back. No calf tenderness. Negative Homans sign bilaterally. NEUROLOGICAL: Awake and alert. Cranial nerves II through XII intact. Motor and sensory grossly within normal limits. Five out of 5 muscle strength in all muscle groups. Normal speech. Procedures none A/P Problem List: (1) Compression fracture of body of thoracic vertebra ICD Code: M48.54XA - Collapsed vertebra, not elsewhere classified, thoracic region, initial encounter for fracture Status: Acute (2) Fall ICD Code: W19.XXXA - Unspecified fall, initial encounter Status: Acute Assessment and Plan This is a 42-year-old female with past mental history of hypothyroidism who presented with a fall Mechanical fall -Due to water being on the floor. Mid back pain -Due to trauma from mechanical fall. -CT scan showed acute/subacute compression fracture of T11 with 4 mm retropulsed fragment. -Neurosurgeon recommended nonsurgical management and cleared patient for discharge when ambulating and TLSO arranged. Also recommend MRI but patient too claustrophobic. -Will continue Percocet for pain control. -PT OOB with TLSO Hypothyroidism with subtherapeutic TSH -Increased levothyroxine to 275 g daily UTI possible pyelonephritis -Continue Cipro patient aware risk of tendon rupture DVT prophylaxis -SCDs. Discharge Planning Discharge when cleared by PT Problem Qualifiers (1) Fall: Qualified Codes: W19.XXXA - Unspecified fall, initial encounter Nteo Smith MD Jun 04, 2017 11:19
[2017-06-04] MEDS: CIPROFLOXACIN 250 MG TAB PO SCH (11:31)
[2017-06-04] MEDS: DOCUSATE SODIUM 50 MG/SENNA 8.6 MG TAB PO SCH (11:32)
[2017-06-04 11:41] VITALS: BP 119/57; PULSE 54; RESP 22; TEMP 98.1; O2SAT 97
[2017-06-04] MEDS ORDERED: LEVOTHYROXINE SODIUM 200 MCG TAB PO ONE (13:00)
[2017-06-04] MEDS ORDERED: LEVOTHYROXINE SODIUM 75 MCG TAB PO ONE (13:00)
[2017-06-04 14:20] LABS: BICARBONATE 28.5 MEQ/L (21.0-32.0); POTASSIUM 4.1 MEQ/L (3.5-5.1)
[2017-06-04 16:07] VITALS: BP 150/84; PULSE 74; RESP 26; TEMP 98.5; O2SAT 94
[2017-06-04] MEDS ORDERED: CYCL10TA PO (18:03)
--- NOTE | 2017-06-04 18:17 | HHI.DS ---
Discharge Summary Admission Date Jun 02, 2017 at 13:22 Discharge Date: Jun 04, 2017 Admitting Diagnosis compression T11 fracture (1) Compression fracture of body of thoracic vertebra ICD Code: M48.54XA - Collapsed vertebra, not elsewhere classified, thoracic region, initial encounter for fracture Diagnosis: Principal Status: Acute (2) Fall ICD Code: W19.XXXA - Unspecified fall, initial encounter Diagnosis: Principal Status: Acute Procedures none Brief History - From Admission 42-year-old female with past history of hypothyroidism who presented with mid back pain after fall. Patient stated that she slide on a puddle of water on concrete and fell and landed on her butt. After the incident she says she has severe mid back pain. She then went to the emergency department. She denied any radiation of the pain or any lower extremity weakness. Deny any fecal or urinary incontinence. All other review of system reviewed and negative. CBC/BMP: 06/03/17 1040 06/04/17 1336 Significant Findings Laboratory Tests Test 06/02/17 21:56 06/03/17 06:30 06/03/17 10:40 06/04/17 13:36 White Blood Count 11.6 TH/MM3 (4.0-11.0) Activated Partial Thromboplast Time 30.4 SEC (24.3-30.1) Creatinine 1.12 MG/DL (0.50-1.00) 1.11 MG/DL (0.50-1.00) 1.07 MG/DL (0.50-1.00) Estimat Glomerular Filtration Rate 54 ML/MIN (>89) 54 ML/MIN (>89) 57 ML/MIN (>89) Urine Turbidity HAZY (CLEAR) Urine Leukocyte Esterase SMALL (NEG) Urine WBC 8 /hpf (0-5) Urine Bacteria MOD /hpf (NONE) Urine Mucus FEW /lpf (OCC) 25-Hydroxy Vitamin D Total 13.4 ng/ML (30-100) Thyroid Stimulating Hormone 3rd Gen 81.600 uIU/ML (0.358-3.740) Random Glucose 67 MG/DL (74-106) Imaging Last Impressions Thoracic Spine CT 06/02/17 1023 Signed Impressions: Service Date/Time: Friday, June 02, 2017 10:54 - CONCLUSION: 1. Acute or subacute compression fracture through T11 with a small associated 4 mm retropulsed fragment off the superior endplate. No obvious spinal stenosis. 2. Multilevel mild degenerative disc disease in the mid and lower dorsal levels with small marginal spurs. Spinal canal again appears adequate throughout. Bolivar Collier MD Lumbar Spine CT 06/02/17 1023 Signed Impressions: Service Date/Time: Friday, June 02, 2017 10:54 - CONCLUSION: 1. Acute or subacute compression fracture through T11 with a 4 mm retropulsed fragment. 2. Lumbar vertebrae are intact throughout with no acute injury. 3. Partially calcified disc at L5-S1. 4. Marked facet hypertrophy rightward L4-5 and L5-S1. I believe the neural foramina remain adequate at both levels, however. Bolivar Collier MD PE at Discharge GENERAL: This is an obese, well-developed patient, in no apparent distress. SKIN: No rashes, ecchymoses or lesions. Cool and dry. CARDIOVASCULAR: Regular rate and rhythm without murmurs, gallops, or rubs. RESPIRATORY: Clear to auscultation. Breath sounds equal bilaterally. No wheezes , rales, or rhonchi. GASTROINTESTINAL: Abdomen soft, non-tender, nondistended. No guarding. MUSCULOSKELETAL: Extremities without clubbing, cyanosis, or edema. Positive tenderness to palpation in the mid back. No calf tenderness. Negative Homans sign bilaterally. NEUROLOGICAL: Awake and alert. Cranial nerves II through XII intact. Motor and sensory grossly within normal limits. Five out of 5 muscle strength in all muscle groups. Normal speech. Hospital Course This is a 42-year-old female with past mental history of hypothyroidism who presented with a fall Mechanical fall -Due to water being on the floor. Mid back pain -Due to trauma from mechanical fall. -CT scan showed acute/subacute compression fracture of T11 with 4 mm retropulsed fragment. -Neurosurgeon recommended nonsurgical management and cleared patient for discharge when ambulating and TLSO arranged. Also recommend MRI but patient too claustrophobic. Open MRI outpatient -Will continue Percocet for pain control. -PT OOB with TLSO Hypothyroidism with subtherapeutic TSH -Increased levothyroxine to 275 g daily UTI possible pyelonephritis -Continue Cipro patient aware risk of tendon rupture DVT prophylaxis -SCDs. Discharge Planning Discharge when cleared by PT Pt Condition on Discharge: Stable Discharge Disposition: Disch w/ Home Health Serv Discharge Time: > 30 minutes Discharge Instructions DIET: Follow Instructions for: As Tolerated, No Restrictions Activities you can perform: See Additionl Instruction Activities to Avoid: Lifting/Bending, Strenuous Activity Other Activity Instructions: Per PT recommendations Must have TLSO on at all times when up out of bed Follow up Referrals: Neurosurgery - 1 Week with Jareth Otto MD PCP Follow-up - 1 Week New Orders: MRI T Spine W/O Contrast - 2-3 Days New Medications: Cholecalciferol (D 1000) 1,000 Unit Tab 2000 UNITS PO DAILY for Nutritional Supplement for 30 Days, #30 TAB Ciprofloxacin (Cipro) 250 Mg Tab 250 MG PO Q12HR for Infection for 9 Days, #18 TAB Cyclobenzaprine (Flexeril) 10 Mg Tab 10 MG PO Q8H PRN for spasm for 30 Days, #90 TAB Levothyroxine (Synthroid) 200 Mcg Tab 200 MCG PO DAILY@0600 for Thyroid for 30 Days, #30 TAB Levothyroxine (Synthroid) 75 Mcg Tab 75 MCG PO DAILY@0600 for Thyroid for 30 Days, #30 TAB Oxycodone-Acetaminophen (Oxycodone-Acetaminophen) 5-325 mg Tab 1 TAB PO Q6H PRN for pain, #28 TAB Additional Information Needs open MRI Neto Smith MD Jun 04, 2017 18:17
[2017-06-05] MEDS ORDERED: LEVOTHYROXINE SODIUM 75 MCG TAB PO SCH (06:00)
[2017-06-05] MEDS ORDERED: LEVOTHYROXINE SODIUM 200 MCG TAB PO SCH (06:00)
== END 2017-06-04 18:44 | disposition home or self-care (01) ==
LOC: NEPA 08:32 → NEDA 13:22 → NEPHCDU 15:19
PROVIDERS: ADMIT Internal Medicine; ATTEND Internal Medicine
DX: M48.54XA Collapsed vertebra, not elsewhere classified, thoracic region, initial encounter for fracture (principal); N39.0 Urinary tract infection, site not specified; F40.240 Claustrophobia; M51.34 Other intervertebral disc degeneration, thoracic region; E03.9 Hypothyroidism, unspecified; E66.01 Morbid (severe) obesity due to excess calories; W01.0XXA Fall on same level from slipping, tripping and stumbling without subsequent striking against object, initial encounter; Z79.899 Other long term (current) drug therapy; Z23 Encounter for immunization
CPT/HCPCS: 72128; 72131; 80048; 81001; 82306; 84443; 85025; 85027; 85610; 85730; 87086; 90686; 90732; 96360; 96361; 96372; G0378; G8987-GO; G8987-GP; G8988-GO; G8988-GP; J1644; J1885; J2270; J2360; J7030; L0484; Q2038